=== PATIENT | female | born 2000 | race Caucasian/White ===

== ENCOUNTER 2019-08-08 14:45 | Emergency (ER) | payer OTHER ==
[~2019-08-08] VITALS: Ht 152.4 cm; Wt 81.6 kg
[2019-08-08 15:12] VITALS: Ht 152.4 cm; Wt 81.6 kg
[2019-08-08 19:04] VITALS: BP 108/77
== END 2019-08-08 19:06 | disposition home or self-care (01) ==
LOC: EDBD 14:45 → ED 14:45
DX: S80.01XA Contusion of right knee, initial encounter (principal); M25.551 Pain in right hip; V49.9XXA Car occupant (driver) (passenger) injured in unspecified traffic accident, initial encounter; Y93.89 Activity, other specified; Y92.413 State road as the place of occurrence of the external cause; Y99.8 Other external cause status
CPT/HCPCS: J1885; Q0092